=== PATIENT | female | born 1970 | race American Indian/Alaskan Native ===

== ENCOUNTER 2018-02-28 10:28 | Day surgery (SDC) | payer BC ==
--- NOTE | 2018-02-28 08:42 | Discharge Summary ---
Short Stay Discharge Plan Activity: no restrictions Weight Bearing Status: Full Weight Bearing Diet: regular Wound: remove dressing (may remove dressing in 3 days and shower) Follow up with: INGE MENDES JR, MD [Staff Physician] - 7 Days
--- NOTE | 2018-02-28 08:43 | Short Stay Summary ---
Short Stay Documentation Date of service: 02/28/18 - Allergies and Medications Current Medications: Allergies No Known Allergies Allergy (Verified 02/25/18 11:02) Home Medications Medication Instructions Recorded Confirmed Last Taken Type Mesalamine 1.2 gm PO DAILY 02/25/18 02/25/18 Unknown History Valsartan/Hydrochlorothiazide 1 each PO DAILY 02/25/18 02/25/18 Unknown History [Valsartan-Hctz 320-12.5 mg Tab] - Brief post op/procedure progress note Date of procedure: 02/28/18 Pre-op diagnosis: Macromastia Post-op diagnosis: same Procedure: Bilateral Breast Reduction Anesthesia: GETA Surgeon: INGE MENDES JR Estimated blood loss: 50-100ml Specimen disposition: to lab Condition: stable - Disposition Condition at discharge: Good Disposition: - TO HOME OR SELFCARE Short Stay Discharge Plan Follow up with: INGE MENDES JR, MD [Staff Physician] - 7 Days
[~2018-02-28 10:28] MED LIST: NACL 0.9% IR ONE
[2018-02-28] MEDS ORDERED: ZOFRAN IV PRN (11:59)
[2018-02-28] MEDS ORDERED: DILAUDID IV PRN (11:59)
--- NOTE | 2018-02-28 11:59 | Anesthesia Day of Surgery ---
Anesthesia Day of Surgery - Day of Surgery Patient Examined: Yes Patient H&P Reviewed: Yes Patient is NPO: Yes
[2018-02-28] MEDS ORDERED: ANCEF/STERILE WATER 2 GM/20 ML IV NR (12:00)
[2018-02-28] MEDS ORDERED: VERSED IV NR (12:00)
[2018-02-28] MEDS ORDERED: LACTATED RINGERS 1,000 ML IV SCH (12:00)
--- NOTE | 2018-02-28 12:00 | Anesthesia Consultation ---
Anesthesia Consult and Med Hx Date of service: 02/28/18 - Airway Anesthetic Teeth Evaluation: Good ROM Head & Neck: Adequate Mental/Hyoid Distance: Adequate Mallampati Class: Class I Intubation Access Assessment: Good - Pulmonary Exam CTA: Yes - Cardiac Exam Cardiac Exam: RRR - Pre-Operative Health Status ASA Pre-Surgery Classification: ASA1 Proposed Anesthetic Plan: General - Cardiovascular System Hx Hypertension: Yes (X 5 YEARS) - Central Nervous System Hx Back Pain: Yes Hx Psychiatric Problems: No - Gastrointestinal Hx Ulcer: Yes - Other Systems Hx Alcohol Use: No Hx Substance Use: No Hx Cancer: No
[2018-02-28 12:14] LABS: Basophils # (Auto) 0.1 K/mm3 (0.0-0.1); Basophils % (Auto) 0.7 % (0.0-1.8); Eosinophils # (Auto) 0.1 K/mm3 (0.0-0.4); Eosinophils % (Auto) 1.5 % (0.0-4.3); Hematocrit 41.7 % (30.3-42.9); Hemoglobin 13.7 gm/dl (10.1-14.3); Lymphocytes % (Auto) 26.1 % (13.4-35.0); Mean Corpuscular HGB Conc 33 % (30-34); Mean Corpuscular Hemoglobin 30 pg (28-32); Mean Corpuscular Volume 90 fl (79-97); Monocytes # (Auto) 0.6 K/mm3 (0.0-0.8); Platelet Count 269 K/mm3 (140-440); Red Blood Count 4.63 M/mm3 (3.65-5.03); Red Cell Distribution Width 14.6 % (13.2-15.2)
[2018-02-28 14:23] LABS: Alanine Aminotransferase 8 units/L (7-56); Albumin 2.9 g/dL (3.9-5); BUN/Creatinine Ratio 25; Blood Urea Nitrogen 10 mg/dL (7-17); Calcium 8.2 mg/dL (8.4-10.2); Hemolysis Index 5
[2018-02-28] MEDS ORDERED: DIPRIVAN 10 MG/ML IV ONE (15:04)
[2018-02-28] MEDS ORDERED: XYLOCAINE MPF 2% ONE (15:05)
[2018-02-28] MEDS ORDERED: DILAUDID ONE (15:22)
[2018-02-28] MEDS ORDERED: DECADRON ONE (15:24)
[2018-02-28] MEDS ORDERED: NACL 0.9% IR ONE (15:35)
[2018-02-28] MEDS ORDERED: SUBLIMAZE ONE (15:45)
[2018-02-28] MEDS ORDERED: NEO SYNEPHRINE/NS Syringe(OR USE) IV ONE (16:10)
[2018-02-28] MEDS ORDERED: ZOFRAN ONE (16:40)
[2018-02-28 19:14] VITALS: BP 130/78
--- NOTE | 2018-02-28 23:18 | Operative Report ---
PREOPERATIVE DIAGNOSIS: Macromastia. POSTOPERATIVE DIAGNOSIS: Macromastia. PROCEDURE: Bilateral reduction mammoplasty with nipple areolar complex amputation. SURGEON: Christiano Gregory MD ROBOTICS TECHNOLOGIST: ____ FINDINGS: 1444 g removed from the right breast, 1442 gm removed from the left breast. DESCRIPTION OF PROCEDURE: The patient was brought to the operating room and placed on the table in supine position. Following administration of general anesthesia, bilateral breasts were prepped with Betadine solution, draped in usual sterile manner. A #10 blade scalpel was used to make a circumareolar skin incision followed by de-epithelization of inferior dermal pedicle. Modified caballero pattern skin markings were incised with scalpel, deepened through subcutaneous fat and breast tissue using the electrocautery. Skin flaps were raised in standard manner as was fashioning of an inferior central mound pedicle. Breast tissue was resected inclusive of bilateral nipple areolar complexes due to the excessively long inframammary fold to nipple distance. Breast tissue was sent to pathology as a specimen. Hemostasis controlled using electrocautery. Closure was performed over 10 mm JEANNIE drains using interrupted and running subcuticular 2-0 Monocryl sutures. Mastisol, Steri-Strips, and sterile dressings applied. The patient tolerated procedure well and returned to recovery room in stable condition. JOB# [id number] FTW/JEANETTE
== END 2018-02-28 19:00 | disposition home or self-care (01) ==
LOC: OR 10:28
PROVIDERS: ATTEND Plastic Surgery
DX: N62 Hypertrophy of breast (principal); I10 Essential (primary) hypertension; Z79.899 Other long term (current) drug therapy
CPT/HCPCS: 19318; 36415; 80053; 81025; 85025; 88305; J0690; J1100; J1170; J2250; J2370; J2405; J2704; J3010; J7120

== ENCOUNTER 2018-06-15 06:19 | Day surgery (SDC) | payer BC ==
[~2018-06-15 06:19] MED LIST changes: +ANCEF/STERILE WATER 2 GM/20 ML IV NR; -NACL 0.9% IR ONE
[2018-06-15] MEDS ORDERED: VERSED IV NR (08:00)
[2018-06-15] MEDS ORDERED: LACTATED RINGERS 1,000 ML IV SCH (08:00)
--- NOTE | 2018-06-15 08:00 | Anesthesia Consultation ---
Anesthesia Consult and Med Hx Date of service: 06/15/18 - Airway Anesthetic Teeth Evaluation: Good ROM Head & Neck: Adequate Mental/Hyoid Distance: Adequate Mallampati Class: Class II Intubation Access Assessment: Probably Good - Pulmonary Exam CTA: Yes - Cardiac Exam Cardiac Exam: RRR - Pre-Operative Health Status ASA Pre-Surgery Classification: ASA2 Proposed Anesthetic Plan: General - Pulmonary Hx Smoking: No Hx Asthma: No Hx Respiratory Symptoms: No Hx Sleep Apnea: No (SHERLY PRE SCREEN LOW RISK) - Cardiovascular System Hx Hypertension: Yes Hx Heart Attack/AMI: No - Central Nervous System Hx Seizures: No CVA: No Hx Back Pain: Yes Hx Psychiatric Problems: No - Endocrine Hx Renal Disease: No Hx Liver Disease: No Hx Insulin Dependent Diabetes: No Hx Thyroid Disease: No - Hematic Hx Anemia: No - Other Systems Hx Alcohol Use: No - Additional Comments Anesthesia Medical History Comments: Hx of ulcerative colitis
--- NOTE | 2018-06-15 08:03 | Anesthesia Day of Surgery ---
Anesthesia Day of Surgery - Day of Surgery Patient Examined: Yes Patient H&P Reviewed: Yes Patient is NPO: Yes
[2018-06-15] MEDS ORDERED: DILAUDID ONE (08:40)
[2018-06-15] MEDS ORDERED: DIPRIVAN 10 MG/ML IV ONE ×2 (08:40→11:00)
[2018-06-15] MEDS ORDERED: ZOFRAN ONE (10:17)
[2018-06-15] MEDS ORDERED: DECADRON ONE (10:17)
[2018-06-15] MEDS ORDERED: NACL 0.9% IR ONE (11:30)
[2018-06-15] MEDS ORDERED: LACTATED RINGERS 1,000 ML ONE (11:32)
--- NOTE | 2018-06-15 11:52 | Operative Report ---
PREOPERATIVE DIAGNOSES: 1. Bilateral absence of nipples. 2. Bilateral acquired breast deformity. 3. Status post bilateral breast reduction with nipple areolar complex amputation. POSTOPERATIVE DIAGNOSES: 1. Bilateral absence of nipples. 2. Bilateral acquired breast deformity. 3. Status post bilateral breast reduction with nipple areolar complex amputation. PROCEDURE: Bilateral nipple reconstruction. SURGEON: Christiano Gregory MD BEADWORKER: Bladimir Cardona CSA. DESCRIPTION OF PROCEDURE: The patient was brought in the operating room, placed on the table in supine position. Following administration of general anesthesia, bilateral breasts were prepped with Betadine solution and draped in the usual sterile manner. A #11 blade scalpel was used to incise preoperative markings for a flag shaped flap, which was folded upon itself, secured with interrupted 3-0 Monocryl sutures to form a cylinder. Donor site was closed with interrupted and running subcuticular 2-0 and 3-0 Monocryl sutures. Prior to closure, a dermal bridge was deepithelialized upon which the nipple areolar complex rested. Mastisol, Steri-Strips, and sterile dressings applied. The patient tolerated the procedure well and returned to recovery room in stable condition. JOB# [id number] FTW/JEANETTE
[2018-06-15] MEDS: DILAUDID IV PRN ×2 (12:10→12:25)
--- NOTE | 2018-06-15 12:48 | Post Anesthesia Evaluation ---
- Post Anesthesia Evaluation Patient Participated: Yes Airway Patent: Yes Stable Respiratory Function: Yes Nausea/Vomiting: No Temp > 96.8F: Yes Pain Manageable: Yes Adequeate Hydration: Yes Anesthesia Complications: No
[2018-06-15 13:04] VITALS: BP 130/85
== END 2018-06-15 13:45 | disposition home or self-care (01) ==
LOC: OR 06:19
PROVIDERS: ATTEND Plastic Surgery
DX: N64.89 Other specified disorders of breast (principal); K51.90 Ulcerative colitis, unspecified, without complications; G43.909 Migraine, unspecified, not intractable, without status migrainosus; I10 Essential (primary) hypertension; Z79.899 Other long term (current) drug therapy; Z91.09 Other allergy status, other than to drugs and biological substances; Z90.13 Acquired absence of bilateral breasts and nipples; Z98.891 History of uterine scar from previous surgery; Z98.890 Other specified postprocedural states; Z80.42 Family history of malignant neoplasm of prostate
CPT/HCPCS: 19350; 36415; 81025; 84132; J0690; J1100; J1170; J2250; J2405; J2704; J7120